=== PATIENT | female | born 1955 | race Caucasian/White ===

== ENCOUNTER 2022-01-30 13:32 | Emergency (ER) | payer OTHER ==
[~2022-01-30] VITALS: Ht 162.6 cm; Wt 65.8 kg
[2022-01-30] MEDS ORDERED: ACETAMINOPHEN 325 MG TABLET PO ONE (14:30)
[2022-01-30] MEDS ORDERED: LIDOCAINE 5% PATCH TD ONE ×2 (14:30→15:52)
[2022-01-30] MEDS ORDERED: IBUPROFEN 400 MG TABLET PO ONE (14:30)
[2022-01-30] MEDS ORDERED: ACET1TAB23 PO (15:20)
[2022-01-30] MEDS ORDERED: LIDO30AD10 TP (15:20)
[2022-01-30] MEDS ORDERED: IBUP-1955 PO (15:20)
[2022-01-30] MEDS ORDERED: IBUPROFEN 400 MG TABLET ONE (15:53)
[2022-01-30] MEDS ORDERED: ACETAMINOPHEN 325 MG TABLET ONE (15:53)
== END 2022-01-30 16:00 | disposition home or self-care (01) ==
LOC: ER 13:32
DX: S20.212A Contusion of left front wall of thorax, initial encounter (principal); W16.012A Fall into swimming pool striking water surface causing other injury, initial encounter; Y92.016 Swimming-pool in single-family (private) house or garden as the place of occurrence of the external cause; Z96.641 Presence of right artificial hip joint
CPT/HCPCS: 71101; 93005; A4663